=== PATIENT | female | born 1955 | race Hispanic/Latino ===

== ENCOUNTER 2017-01-07 15:11 | Emergency (ER) | payer MEDICARE, BC ==
[2017-01-07 15:23] VITALS: BMI 37.9
[2017-01-07 15:28] VITALS: BP 123/82; PULSE 71; RESP 18; TEMP 98.4; O2SAT 96
[2017-01-07] MEDS ORDERED: Oxycodone/Acetaminophen 5/325 mg Tab PO STA (16:17)
--- NOTE | 2017-01-07 16:32 | ED PDOC ---
Arrival/HPI - General Chief Complaint: Dental Pain Time Seen by Provider: 01/07/17 16:17 Historian: Patient - History of Present Illness Narrative History of Present Illness (Text): 01/07/17 17:01 61-year-old female presents today with left lower dental pain intermittently over the past few months. Patient states she's had intermittent swelling to the left side of the cheek for the past few weeks on and off. Patient presents today with continued pain and swelling to the left lower molar. Patient states she feels purulent discharge coming from the swelling within the mouth. She denies fevers or chills. Denies trismus or drooling. No other complaints Time/Duration: > week Symptom Onset: Gradual Symptom Course: Intermittent Quality: Aching, Throbbing Severity Level: 8 Past Medical History - Provider Review Nursing Documentation Reviewed: Yes - Travel History Have you recently traveled outside [place] w/in the past 3 mons?: No - Infectious Disease Hx of Infectious Diseases: None - Reproductive Menopause: Yes - Neurological Other/Comment: tremors - Psychiatric Hx Substance Use: No - Surgical History Hx Cholecystectomy: Yes Hx Hysterectomy: Yes Other/Comment: vein stripping, back surgery - Anesthesia Hx Anesthesia Reactions: No Hx Malignant Hyperthermia: No Family/Social History - Physician Review Nursing Documentation Reviewed: Yes Family/Social History: Unknown Family HX Smoking Status: Never Smoked Hx Alcohol Use: No Hx Substance Use: No Allergies/Home Meds Allergies/Adverse Reactions: Allergies No Known Allergies Allergy (Verified 01/07/17 15:59) Review of Systems - Review of Systems Constitutional: absent: Fatigue, Fevers ENT: Other (left lower dental pain) Respiratory: absent: SOB, Cough Cardiovascular: absent: Chest Pain, Palpitations Gastrointestinal: absent: Abdominal Pain, Vomiting Genitourinary Female: absent: Dysuria Musculoskeletal: absent: Back Pain, Neck Pain Skin: absent: Rash, Pruritis Neurological: absent: Headache, Dizziness Psychiatric: absent: Anxiety Physical Exam Vital Signs Reviewed: Yes Vital Signs Temp Pulse Resp BP Pulse Ox 01/07/17 15:12 98.4 F 71 18 123/82 96 Temperature: Afebrile Blood Pressure: Normal Pulse: Regular Respiratory Rate: Normal Appearance: Positive for: Well-Appearing, Non-Toxic, Comfortable Pain Distress: None Mental Status: Positive for: Alert and Oriented X 3 - Systems Exam Head: Present: Atraumatic, Swelling (+ swelling to left cheek) Mouth: Present: Moist Mucous Membranes, Normal Lips, Normal Tounge, Other (left lower gingiva; there is a large dental abscess noted to the left lower molar with + purulent discharge and swelling and erythema. ). No: Drooling, Trismus, Normal Teeth Pharnyx: Present: Normal. No: ERYTHEMA, EXUDATE Neck: Present: Normal Range of Motion, Trachea Midline. No: Lymphadenopathy Respiratory/Chest: Present: Clear to Auscultation, Good Air Exchange. No: Respiratory Distress, Accessory Muscle Use Cardiovascular: Present: Regular Rate and Rhythm Neurological: Present: GCS=15 Skin: Present: Warm, Dry, Normal Color. No: Rashes Psychiatric: Present: Alert, Oriented x 3 Medical Decision Making ED Course and Treatment: 01/07/17 18:05 Patient is nontoxic well-appearing in no distress with stable vital signs No trismus or drooling, moist mucous membranes pt with draining dental abscess to the left lower molar/gingiva. clindamycin toradol percocet Patient reassessment: Patient is feeling better after medications. I advised follow-up with the dentist within the next 2 days. I advised immediate return is symptoms worsen persist or if new concerning symptoms develop Patient verbalizes understanding of discharge instructions and need for immediate followup. Impression: Dental abscess Motrin every 6 hours as needed for pain Clindamycin 1 tablet 3 times daily x 10 days Percocet 1 tablet every 6 hours as needed for moderate to severe pain: May cause drowsiness Follow-up with the dentist within the next 2 days Return immediately if symptoms worsen persist or if new concerning symptoms develop [facility] [address] [place] [address] [place] [address] [phone] Disposition/Present on Arrival - Present on Arrival Any Indicators Present on Arrival: No History of DVT/PE: No History of Uncontrolled Diabetes: No Urinary Catheter: No History of Decub. Ulcer: No History Surgical Site Infection Following: None - Disposition Have Diagnosis and Disposition been Completed?: Yes Diagnosis: Dental abscess Disposition: HOME/ ROUTINE Disposition Time: 16:57 Patient Plan: Discharge Condition: GOOD Discharge Instructions (ExitCare): Dental Abscess (ED) Additional Instructions: Motrin every 6 hours as needed for pain Clindamycin 1 tablet 3 times daily x 10 days Percocet 1 tablet every 6 hours as needed for moderate to severe pain: May cause drowsiness Follow-up with the dentist within the next 2 days Return immediately if symptoms worsen persist or if new concerning symptoms develop [facility] [address] [facility] [phone] [address] [place], [place] [phone] Prescriptions: Clindamycin [Cleocin] 300 mg PO TID #21 cap Ibuprofen [Motrin] 600 mg PO Q6H PRN #20 tab PRN Reason: pain/fever reduction oxyCODONE/Acetaminophen [Percocet 5/325 mg Tab] 1 tab PO Q6H PRN #6 tab PRN Reason: moderate to severe pain Referrals: Alex Hoskins DMD [Non-Staff] - Follow up with primary Robbie Villavicencio DMD [Staff Provider] - Follow up with primary Jessica Tamez MD [Staff Provider] - Follow up with primary Forms: [email or web address] (German)
== END 2017-01-07 17:12 | disposition home or self-care (01) ==
LOC: ED 15:11
DX: K04.7 Periapical abscess without sinus (principal)
CPT/HCPCS: 96372; 99282; J1885